=== PATIENT | female | born 1955 | race Two or more races ===

== ENCOUNTER 2019-03-17 10:28 | Inpatient (IN) | payer MEDICAID ==
[~2019-03-17] VITALS: Ht 167.6 cm; Wt 122.5 kg
[2019-03-17] MEDS ORDERED: ONDANSETRON HCL 4MG/2ML INJ IV STA (12:41)
[2019-03-17] MEDS ORDERED: MORPHINE SULFATE 4 MG/ML CPJ (NOT FOR IM USE) IV STA (12:41)
[2019-03-17] MEDS ORDERED: CEFTRIAXONE 1 G PREMIX 50 ML IV ONE (12:45)
[2019-03-17 13:56] LABS: BASOPHILS % 0.2 % (0.0-2.0); EOSINOPHILS % 1.8 % (0.0-5.0); HEMOGLOBIN. 12.3 g/dL (12.0-16.0); LYMPHOCYTES % 14.5 % (20.0-50.0); MEAN CORPUSCULAR HEMOGLOBIN 29.4 pg (28.0-32.0); MEAN CORPUSCULAR VOLUME 88.4 fL (81.0-99.0); MEAN PLATELET VOLUME 8.2 fl (7.4-10.4); MONOCYTES % 10.4 % (2.0-8.0); NEUTROPHILS % 73.1 % (40.0-76.0); PLATELET 235 x1000/uL (130-400); RED BLOOD CELL COUNT 4.19 mill/uL (4.2-5.4); RED CELL DISTRIBUTION WIDTH 14.2 % (11.6-14.6)
[2019-03-17 14:03] LABS: CHLORIDE 104 mEq/L (98-107)
[2019-03-17] MEDS: VANCOMYCIN 1 G PREMIX 200 ML IV SCH (14:57)
[2019-03-17] MEDS ORDERED: IOHEXOL-300 100 ML BOTTLE ONE (15:06)
[2019-03-17 15:54] LABS: CLARITY URINE CLEAR (CLEAR); COLOR URINE YELLOW (YELLOW); KETONES URINE 1+ (NEGATIVE); LEUKOCYTE ESTERASE URINE NEGATIVE (NEGATIVE); NITRITE URINE NEGATIVE (NEGATIVE); OCCULT BLOOD URINE NEGATIVE (NEGATIVE); PH URINE 6.5 (4.5-8.0); PROTEIN URINE NEGATIVE (NEGATIVE); SPECIFIC GRAVITY URINE 1.022 (1.005-1.030); UROBILINOGEN URINE 0.2 E.U./dL (0.2-1.0)
[2019-03-17 16:00] VITALS: BP 153/90
[2019-03-17] MEDS ORDERED: GUAIFENESIN 200MG/10ML SUGAR FREE UDC PO PRN (17:00)
[2019-03-17] MEDS ORDERED: LORAZEPAM 2MG/ML CPJ IV PRN (17:00)
[2019-03-17] MEDS ORDERED: DIPHENHYDRAMINE 50MG/ML VIAL IV PRN (17:00)
[2019-03-17] MEDS ORDERED: NA PHOS,M-B/NA PHOS,DI-BA ENEMA 118ML PR PRN (17:00)
[2019-03-17] MEDS ORDERED: CLONIDINE 0.1MG TABLET PO PRN (17:00)
[2019-03-17] MEDS ORDERED: MORPHINE SULFATE 2 MG/ML CPJ (NOT FOR IM USE) IV PRN (17:00)
[2019-03-17] MEDS ORDERED: HYDRALAZINE 20MG/ML VIAL IV PRN (17:00)
[2019-03-17] MEDS ORDERED: MAGNESIUM/ALUMINUM HYDROXIDE/SIMETHICONE 30ML UDC PO PRN (17:00)
[2019-03-17] MEDS ORDERED: HYDROCODONE/ACETAMINOPHEN 10/325MG TABLET PO PRN (17:00)
[2019-03-17] MEDS ORDERED: ACETAMINOPHEN 325MG TABLET PO PRN (17:00)
[2019-03-17] MEDS ORDERED: ONDANSETRON HCL 4MG/2ML INJ IV PRN (17:00)
[2019-03-17] MEDS ORDERED: IPRATROPIUM/ALBUTEROL 0.5-3(2.5)MG/3ML NEB HHN PRN (17:00)
[2019-03-17] MEDS ORDERED: DOCUSATE SODIUM 100MG CAPSULE PO PRN (17:00)
[2019-03-17] MEDS ORDERED: HYDRALAZINE 10 MG in SODIUM CHLORIDE 0.9% 49.5 ML IV PRN (17:45)
[2019-03-17 18:30] VITALS: BP 133/76
[2019-03-17] MEDS ORDERED: SIMV-43 MT (19:01)
[2019-03-17] MEDS ORDERED: CALC-1042 PO (19:01)
[2019-03-17 20:00] VITALS: BP 116/63
[2019-03-17] MEDS: PIPERACILLIN/TAZOBACTAM 3.375 G in DEXT 5% WATER 100 ML IV SCH (20:23)
[2019-03-17] MEDS: ENOXAPARIN 30MG/0.3ML SYR SUBCUT SCH (20:28)
[2019-03-17] MEDS ORDERED: SODIUM CHLORIDE 0.9% INJ 3ML FLUSH IVF SCH (22:00)
[2019-03-18] VITALS: BP 104/65
[2019-03-18] MEDS: PIPERACILLIN/TAZOBACTAM 3.375 G in DEXT 5% WATER 100 ML IV SCH ×3 (03:49→20:26)
[2019-03-18 04:00] VITALS: BP 111/58
[2019-03-18 06:58] LABS: EOSINOPHILS % 3.1 % (0.0-5.0); HEMATOCRIT. 32.6 % (36.0-48.0); HEMOGLOBIN. 10.8 g/dL (12.0-16.0); LYMPHOCYTES % 17.7 % (20.0-50.0); MEAN CORPUSCULAR HEMOGLOBIN 29.5 pg (28.0-32.0); MEAN CORPUSCULAR VOLUME 88.7 fL (81.0-99.0); MEAN PLATELET VOLUME 7.7 fl (7.4-10.4); MONOCYTES % 11.9 % (2.0-8.0); NEUTROPHILS % 67.3 % (40.0-76.0); PLATELET 217 x1000/uL (130-400); RED BLOOD CELL COUNT 3.67 mill/uL (4.2-5.4)
[2019-03-18 08:00] VITALS: BP 116/70
[2019-03-18 08:07] LABS: CHLORIDE 106 mEq/L (98-107)
[2019-03-18] MEDS: SODIUM CHLORIDE 0.45% 1,000 ML IV SCH (09:20)
[2019-03-18] MEDS: ENOXAPARIN 30MG/0.3ML SYR SUBCUT SCH ×2 (09:22→20:26)
[2019-03-18 12:00] VITALS: BP 123/79
[2019-03-18] MEDS: VANCOMYCIN 1 G PREMIX 200 ML IV SCH (14:20)
[2019-03-18 16:00] VITALS: BP 114/69
[2019-03-18 20:00] VITALS: BP 110/62
[2019-03-19] VITALS: BP 119/80
[2019-03-19] MEDS: SODIUM CHLORIDE 0.45% 1,000 ML IV SCH (01:02)
[2019-03-19 04:00] VITALS: BP 102/72
[2019-03-19] MEDS: PIPERACILLIN/TAZOBACTAM 3.375 G in DEXT 5% WATER 100 ML IV SCH ×2 (04:48→11:06)
[2019-03-19 07:17] LABS: CHLORIDE 104 mEq/L (98-107)
[2019-03-19 07:23] LABS: BASOPHILS % 0.2 % (0.0-2.0); EOSINOPHILS % 3.3 % (0.0-5.0); HEMATOCRIT. 35.2 % (36.0-48.0); HEMOGLOBIN. 11.8 g/dL (12.0-16.0); LYMPHOCYTES % 19.7 % (20.0-50.0); MEAN CORPUSCULAR HEMOGLOBIN 29.5 pg (28.0-32.0); MEAN CORPUSCULAR VOLUME 88.4 fL (81.0-99.0); MONOCYTES % 10.6 % (2.0-8.0); NEUTROPHILS % 66.2 % (40.0-76.0); PLATELET 235 x1000/uL (130-400); RED BLOOD CELL COUNT 3.98 mill/uL (4.2-5.4); RED CELL DISTRIBUTION WIDTH 13.8 % (11.6-14.6)
[2019-03-19 08:00] VITALS: BP 114/64
[2019-03-19] MEDS: ENOXAPARIN 30MG/0.3ML SYR SUBCUT SCH (08:20)
[2019-03-19 12:00] VITALS: BP 121/80
[2019-03-19 12:18] VITALS: BP 121/80
[2019-03-19 14:17] VITALS: BP 121/80
== END 2019-03-19 16:04 | disposition home or self-care (01) | DRG 383 ==
LOC: ER 10:28 → 6EST 14:28 → ENRESERV 15:50
PROVIDERS: ADMIT Internal Medicine; ATTEND Internal Medicine
PROC: 0W9F3ZZ Drainage of Abdominal Wall, Percutaneous Approach (ICD-10-PCS; principal; 2019-03-17)
DX: L02.211 Cutaneous abscess of abdominal wall (principal); Z68.41 Body mass index [BMI] 40.0-44.9, adult; L03.311 Cellulitis of abdominal wall; E66.9 Obesity, unspecified; Z79.899 Other long term (current) drug therapy
CPT/HCPCS: 36415; 71045; 74177; 80048; 80053; 81003; 83036; 85025; 93005; 96361; 96365; 96368; 96375; 99285; J0696; J1650; J2270; J2405; J2543; J3370; J7060; Q9967